=== PATIENT | female | born 1950 | race African-American/Black ===

== ENCOUNTER 2018-08-23 23:18 | Inpatient (IN) | payer MEDICARE ==
[~2018-08-23] VITALS: Ht 160 cm; Wt 93.4 kg
[2018-08-23] MEDS ORDERED: SOD CHLORIDE 0.9% 1,000 ML IV STA (23:23)
[2018-08-23] MEDS ORDERED: CEFTRIAXONE 1 GM/50 ML (PMX) 50 ML IVPB STA (23:23)
[2018-08-23] MEDS ORDERED: AZITHROMYCIN 500MG/NS (PMX) 250 ML IV STA (23:23)
[2018-08-23] MEDS ORDERED: METHYLPREDNISOLONE 125 MG INJ IV STA (23:23)
[2018-08-23] MEDS ORDERED: ALBUTEROL 0.083% (NEB) 2.5 MG/3 ML AMP HHN STA ×2 (23:24→23:35)
[2018-08-23 23:26] VITALS: Ht 160 cm; Wt 93.4 kg
[2018-08-23] MEDS ORDERED: MAGNESIUM SULFATE 2 GM/50 ML 50 ML IVPB ONE (23:30)
[2018-08-23] MEDS ORDERED: IPRATROPIUM (NEB) 0.5 MG/2.5 ML AMP HHN ONE (23:30)
[2018-08-24] VITALS (9 sets, daily range): BP systolic 118–141; BP diastolic 65–79; PULSE 90–110; RESP 20–22; BMI 36.5
--- NOTE | 2018-08-24 02:06 | ERD ---
ER Documentation Chief Complaint Chief Complaint SOB/asthema exacerbation despite continuous nebs x 2 days, 88% ra HPI This is a 68-year-old female with a history of asthma who presents for wheezing despite being at home on continuous nebs, arrived to the ED brought in by ambulance, hypoxic, history was limited secondary to acuity of her condition. The patient states that she is not a smoker, she denies chest pain, she has had no leg swelling, no hemoptysis. ROS All systems reviewed and are negative except as per history of present illness. Allergies Allergies: Coded Allergies: No Known Allergy (Unverified , 08/23/18) PMhx/Soc History of Surgery: No Anesthesia Reaction: No Hx Neurological Disorder: No Hx Respiratory Disorders: Yes (Asthma) Hx Cardiac Disorders: No Hx Psychiatric Problems: No Hx Miscellaneous Medical Probl: No Hx Alcohol Use: No Hx Substance Use: No Hx Tobacco Use: No Smoking Status: Never smoker Physical Exam Vitals Vital Signs Date Temp Pulse Resp B/P (MAP) Pulse Ox O2 O2 Flow FiO2 Time Delivery Rate 08/24/18 104 18 115/73 100 Mask 5.0 00:00 (87) 08/23/18 120 26 96 Nasal 3.0 23:41 Cannula 08/23/18 Non 15.0 23:30 Rebreather 08/23/18 Non 15 23:30 Rebreather 08/23/18 99.5 133 50 144/81 88 23:26 (102) Physical Exam Const: Moderate distress, tachypnea Head: Atraumatic Eyes: Normal Conjunctiva ENT: Normal External Ears, Nose and Mouth. Neck: Full range of motion. No meningismus. Resp: Bilateral expiratory wheezing, tachypnea noted Cardio: Regular rate and rhythm, no murmurs Abd: Soft, non tender, non distended. Normal bowel sounds Skin: No petechiae or rashes Back: No midline or flank tenderness Ext: No cyanosis, or edema Neur: Awake and alert Psych: Normal Mood and Affect Result Diagram: 08/23/18 3919 Results 24 hrs Laboratory Tests Test 08/23/18 23:23 08/23/18 23:36 Blood Gas Specimen Source Blood venous Arterial Blood Date Drawn 08/23/2018 11:30:20 PM Arterial Blood Gas Puncture Site VENOUS LINE Jaime Test N/A Venous Blood pH 7.290 Venous Blood pCO2 (Temp Corrected) 46.1 mmHG Venous Blood pO2 (Temp Corrected) 50.0 mmHG Venous Blood HCO3 21.7 mmol/L Venous Blood Oxygen Saturation 82.0 mmHG Venous Blood Base Excess -4.9 mmol/L Venous Blood Total Hemoglobin 13.4 g/dl Venous Blood Oxyhemoglobin 81.5 % Venous Blood Methemoglobin 0.2 % Carboxyhemoglobin 0.4 % Blood Gas Temperature 37.0 C Blood Gas Modality NASAL CANNULA FiO2 30.0 % Blood Gas Notified Whom UP Blood Gas Notified Time 08/23/2018 11:49:02 PM White Blood Count 11.5 10^3/ul Red Blood Count 4.16 10^6/ul Hemoglobin 12.6 g/dl Hematocrit 37.6 % Mean Corpuscular Volume 90.4 fl Mean Corpuscular Hemoglobin 30.3 pg Mean Corpuscular Hemoglobin Concent 33.5 g/dl Red Cell Distribution Width 13.8 % Platelet Count 243 10^3/UL Mean Platelet Volume 10.5 fl Immature Granulocytes % 0.500 % Neutrophils % 87.9 % Lymphocytes % 7.1 % Monocytes % 3.7 % Eosinophils % 0.4 % Basophils % 0.4 % Nucleated Red Blood Cells % 0.0 /100WBC Immature Granulocytes # 0.060 10^3/ul Neutrophils # 10.1 10^3/ul Lymphocytes # 0.8 10^3/ul Monocytes # 0.4 10^3/ul Eosinophils # 0.1 10^3/ul Basophils # 0.1 10^3/ul Nucleated Red Blood Cells # 0.0 10^3/ul Prothrombin Time 12.6 Sec Prothrombin Time Ratio 1.0 INR International Normalized Ratio 0.93 Activated Partial Thromboplast Time 24.1 Sec Troponin I 0.014 ng/ml B-Type Natriuretic Peptide 60 PG/ML Current Medications Medications Dose Sig/Cristal Start Time Status Last (Trade) Ordered Route PRN Stop Time Admin Dose Reason Admin Albuterol 2.1 mg ONCE STAT 08/23/18 DC (Proventil HHN 23:24 0.083% (Neb)) 08/23/18 23:33 Sodium 1,000 ml @ Q1H STAT 08/23/18 DC 08/24/18 Chloride 1,000 mls/hr IV 23:23 00:01 08/24/18 00:22 125 mg ONCE STAT 08/23/18 DC 08/23/18 Methylprednis IV 23:23 23:53 olone Sodium 08/23/18 23:26 Succinate (Solu-Medrol) Ceftriaxone 50 ml @ ONCE STAT 08/23/18 DC 08/23/18 Sodium 100 mls/hr IVPB 23:23 23:52 08/23/18 23:52 Azithromycin 250 ml @ ONCE STAT 08/23/18 DC 08/24/18 250 mls/hr IV 23:23 00:20 08/24/18 00:22 Magnesium 50 ml @ 25 ONCE ONCE 08/23/18 DC 08/23/18 Sulfate mls/hr IVPB 23:30 23:53 08/24/18 01:29 Ipratropium 1 mg ONCE ONCE 08/23/18 DC 08/23/18 [place] HHN 23:30 23:54 (Atrovent 08/23/18 23:33 0.02% (Neb)) Albuterol 10 mg ONCE STAT 08/23/18 DC 08/23/18 (Proventil HHN 23:35 23:55 0.083% (Neb)) 08/23/18 23:41 Procedures/MDM This is a 68-year-old female presents for evaluation of shortness of breath, in the setting of a prior history of asthma. Patient was evaluated immediately, and treated with nebulized treatments, as well as steroids, placed on nasal cannula, she did not have a significant respiratory acidosis, and her chest x- ray showed no evidence of pneumonia, on reassessment she had improved to family, but still required oxygen support and had some wheezing on exam. That she will be admitted to telemetry observation. Accepting Care Team: Current data and ongoing care discussed. Primary: [place] Consulting: None Outstanding Data: none EKG: Rate/Rhythm: Normal Sinus Rhythm QRS, ST, T-waves: No changes consistent w/ acute ischemia Impression: No evidence of ischemia or arrhythmia Critical Care Time: 35 minutes Treatments/Evaluations: Close monitoring and treatment of unstable vital signs, cardiorespiratory, and neurologic status, while maintaining tight balance of fluid, respiratory, and cardiac interventions. This time includes discussing the case with the patient and the patient's family. This time does not include all procedures stated elsewhere in this record. This time also includes reviewing old records, labs and radiological studies. This time includes examining and re- examining the patient. Additionally, this time also includes arranging care with admitting and consulting physicians. Departure Diagnosis: Primary Impression: Shortness of breath Additional Impression: Asthma Condition: Stable DARYL DEL ROSARIO MD Aug 24, 2018 02:06
[2018-08-24] MEDS ORDERED: ONDANSETRON 4 MG INJ IV PRN (03:00)
[2018-08-24] MEDS ORDERED: ACETAMINOPHEN 325 MG TAB PO PRN (03:00)
[2018-08-24] MEDS ORDERED: NACL 0.9% 3 ML SYG IV SCH (03:00)
[2018-08-24] MEDS ORDERED: ALBUTEROL/IPRATROPIUM (NEB) 3 ML AMP HHN PRN (03:00)
[2018-08-24] MEDS ORDERED: TIOT18CA INHALATION (05:37)
[2018-08-24] MEDS ORDERED: ALBU18HF INHALATION (05:37)
--- NOTE | 2018-08-24 07:14 | HP ---
Date/Time of Note Date/Time of Note DATE: 08/24/18 TIME: 07:09 Assessment/Plan VTE Prophylaxis Pharmacological prophylaxis: heparin Lines/Catheters IV Catheter Type (from Nrs): Saline Lock Assessment/Plan Assessment/Plan [age]-year-old female with history of asthma presented with shortness and wheezing secondary to asthma exacerbation PLAN -Supplemental oxygen, bronchodilators and steroid -Weight reduction is advised Result Diagram: 08/24/18 0537 08/24/18 0537 Results 24hrs Laboratory Tests Test 08/23/18 23:23 08/23/18 23:36 08/24/18 00:10 08/24/18 05:37 Blood Gas Blood venous Blood arterial Specimen Source Arterial Blood 08/23/2018 11:30 08/24/2018 4:00: Date Drawn :20 PM 06 AM Arterial Blood VENOUS LINE Right Radial Gas Puncture Site Jaime Test N/A ACCEPTAB Venous Blood pH 7.290 L Venous Blood 46.1 H pCO2 (Temp Corrected) Venous Blood pO2 50.0 H (Temp Corrected) Venous Blood 21.7 L HCO3 Venous Blood 82.0 H Oxygen Saturation Venous Blood -4.9 Base Excess Venous Blood 13.4 Total Hemoglobin Venous Blood 81.5 Oxyhemoglobin Venous Blood 0.2 Methemoglobin Carboxyhemoglobi 0.4 n Blood Gas 37.0 37.0 Temperature Blood Gas NASAL CANNULA ROOM AIR Modality FiO2 30.0 21.0 Blood Gas UP UP Notified Whom Blood Gas 08/23/2018 11:49 08/24/2018 4:10: Notified Time :02 PM 51 AM White Blood 11.5 H 13.4 H Count Red Blood Count 4.16 L 4.16 L Hemoglobin 12.6 12.5 Hematocrit 37.6 37.5 Mean Corpuscular 90.4 90.1 Volume Mean Corpuscular 30.3 30.0 Hemoglobin Mean Corpuscular 33.5 33.3 Hemoglobin Michelle nt Red Cell 13.8 13.7 Distribution Width Platelet Count 243 250 Mean Platelet 10.5 H 10.8 H Volume Immature 0.500 H 0.700 H Granulocytes % Neutrophils % 87.9 H 94.8 H Lymphocytes % 7.1 L 4.0 L Monocytes % 3.7 0.4 Eosinophils % 0.4 0.0 Basophils % 0.4 0.1 Nucleated Red 0.0 0.0 Blood Cells % Immature 0.060 H 0.090 H Granulocytes # Neutrophils # 10.1 H 12.7 H Lymphocytes # 0.8 0.5 L Monocytes # 0.4 0.1 L Eosinophils # 0.1 0.0 Basophils # 0.1 0.0 Nucleated Red 0.0 0.0 Blood Cells # Prothrombin Time 12.6 Prothrombin Time 1.0 Ratio INR 0.93 International Normalized Ratio Activated 24.1 Partial Thrombop last Time Troponin I 0.014 B-Type 60 Natriuretic Peptide Arterial Blood 7.347 L pH (Temp corrected) Arterial Blood 41.2 pCO2 (Temp correct) Arterial Blood 76.2 L pO2 (Temp corrected) Arterial Blood 22.1 HCO3 Arterial Blood -3.4 L Base Excess Arterial Blood 94.6 L Oxygen Saturatio n Arterial 0.2 Blood Carboxyhem oglobin Arterial Blood 0.2 Methemoglobin Blood Gas A-a O2 24.2 H Differential Oxyhemoglobin 94.2 Percent Sodium Level 143 Potassium Level 4.1 Chloride Level 111 H Carbon Dioxide 22 Level Anion Gap 10 Blood Urea 16 Nitrogen Creatinine 0.72 Est Glomerular > 60 Filtrat Rate mL/min Glucose Level 172 Calcium Level 8.9 Magnesium Level 2.4 Total Bilirubin 0.3 Direct Bilirubin 0.00 Indirect 0.3 Bilirubin Aspartate Amino 28 Transf (AST/SGOT ) Alanine 17 Aminotransferase (ALT/SGPT) Alkaline 110 Phosphatase Total Protein 6.9 Albumin 3.9 Globulin 3.00 Albumin/Globulin 1.30 Ratio HPI/ROS Admit Date/Time Admit Date/Time Aug 24, 2018 at 02:00 Hx of Present Illness This is a 68-year-old obese female with a history of asthma who presents the ER complaining of shortness of breath and wheezing. She said she was admitted for asthma exacerbation 2 weeks ago at an outside hospital. She has been using nebulizing treatments about 10 times a day without improvement in her symptom and as such she decided to come to the ER for evaluation. She states she was also admitted at the [facility] in May of this year for asthma exacerbation. No history of intubation. ABG in the ER shows mild hypercapnia and significant hypoxia. Initial O2 saturation was 88% on room air. Chest x-ray without acute cardiopulmonary findings. PMH/Family/Social Past Medical History Medical History: other (see hpi) Medications Current Medications IV Flush (NS 3 ml) 3 ml PER PROTOCOL IV ; Start 08/24/18 at 03:00 Ondansetron HCl (Zofran Inj) 4 mg Q6H PRN IV NAUSEA/VOMITING; Start 08/24/18 at 03:00 Methylprednisolone Sodium Succinate (Solu-Medrol) 80 mg DAILY IV ; Start 08/24/18 at 09:00 Acetaminophen (Tylenol Tab) 650 mg Q6H PRN PO .PAIN 1-3 OR TEMP; Start 08/24/18 at 03:00 Heparin Sodium (Porcine) (Heparin (5000 Units/1ml)) 5,000 unit Q12 SC ; Start 08/24/18 at 09:00 Albuterol/ Ipratropium (Duoneb) 3 ml Q2H RESP THERAPY PRN HHN SHORTNESS OF BREATH; Start 08/24/18 at 03:00 Coded Allergies: No Known Allergy (Unverified , 08/23/18) Past Surgical History Past Surgical Hx: other (see hpi) Family History Significant Family History: no pertinent family hx Social History Alcohol Use: none Smoking Status: Never smoker Drug Use: none Exam/Review of Systems Vital Signs Vitals Vital Signs Date Temp Pulse Resp B/P (MAP) Pulse Ox O2 O2 Flow FiO2 Time Delivery Rate 08/24/18 Nasal 2.0 06:14 Cannula 08/24/18 98.0 100 22 126/79 98 05:21 (95) Exam Constitutional: alert, oriented, well developed Head: normocephalic, atraumatic Eyes: EOMI, PERRL Respiratory: diminished breath sounds, wheezing Cardiovascular: other (tachy) Gastrointestinal: soft KADY FISCHER MD Aug 24, 2018 07:14
[2018-08-24] MEDS: HEPARIN 5,000 UNIT/1 ML VIAL SC SCH ×2 (08:35→22:49)
[2018-08-24] MEDS ORDERED: METHYLPREDNISOLONE 125 MG INJ IV SCH (09:00)
--- NOTE | 2018-08-24 12:51 | QN ---
Documentation Comment The patient sees a Dr. Henry as outpatient. Therefore, the patient is req uesting to be seen by Dr. Henry. Dr. Adhikari, who works with Dr. Henry sick was informed about this and she will take over the patient's care. Case discussed with Dr. Knox. NIKOS VAZQUEZ NP Aug 24, 2018 12:51
--- NOTE | 2018-08-24 15:22 | PN ---
Date/Time of Note Date/Time of Note DATE: 08/24/18 TIME: 15:13 Assessment/Plan VTE Prophylaxis Risk score (from [facility])>0 risk: 3 SCD applied (from [facility]): No SCD contraindicated: low risk/ambulating Pharmacological prophylaxis: NA/contraindicated Pharm contraindication: low risk/ambulating Lines/Catheters IV Catheter Type (from [facility]): Saline Lock Assessment/Plan Assessment/Plan 68 y/o with # Asthma exacerbation # Leukocytosis Plan - Nebs - iv solumedrol q8 - Robitusin prn cough - iv rocephin/azithromycin Result Diagram: 08/24/18 0537 08/24/18 0537 Results 24hrs Laboratory Tests Test 08/23/18 23:23 08/23/18 23:36 08/24/18 00:10 08/24/18 05:37 Blood Gas Blood venous Blood arterial Specimen Source Arterial Blood 08/23/2018 11:30 08/24/2018 4:00: Date Drawn :20 PM 06 AM Arterial Blood VENOUS LINE Right Radial Gas Puncture Site Jaime Test N/A ACCEPTAB Venous Blood pH 7.290 L Venous Blood 46.1 H pCO2 (Temp Corrected) Venous Blood pO2 50.0 H (Temp Corrected) Venous Blood 21.7 L HCO3 Venous Blood 82.0 H Oxygen Saturation Venous Blood -4.9 Base Excess Venous Blood 13.4 Total Hemoglobin Venous Blood 81.5 Oxyhemoglobin Venous Blood 0.2 Methemoglobin Carboxyhemoglobi 0.4 n Blood Gas 37.0 37.0 Temperature Blood Gas NASAL CANNULA ROOM AIR Modality FiO2 30.0 21.0 Blood Gas UP UP Notified Whom Blood Gas 08/23/2018 11:49 08/24/2018 4:10: Notified Time :02 PM 51 AM White Blood 11.5 H 13.4 H Count Red Blood Count 4.16 L 4.16 L Hemoglobin 12.6 12.5 Hematocrit 37.6 37.5 Mean Corpuscular 90.4 90.1 Volume Mean Corpuscular 30.3 30.0 Hemoglobin Mean Corpuscular 33.5 33.3 Hemoglobin Michelle nt Red Cell 13.8 13.7 Distribution Width Platelet Count 243 250 Mean Platelet 10.5 H 10.8 H Volume Immature 0.500 H 0.700 H Granulocytes % Neutrophils % 87.9 H 94.8 H Lymphocytes % 7.1 L 4.0 L Monocytes % 3.7 0.4 Eosinophils % 0.4 0.0 Basophils % 0.4 0.1 Nucleated Red 0.0 0.0 Blood Cells % Immature 0.060 H 0.090 H Granulocytes # Neutrophils # 10.1 H 12.7 H Lymphocytes # 0.8 0.5 L Monocytes # 0.4 0.1 L Eosinophils # 0.1 0.0 Basophils # 0.1 0.0 Nucleated Red 0.0 0.0 Blood Cells # Prothrombin Time 12.6 Prothrombin Time 1.0 Ratio INR 0.93 International Normalized Ratio Activated 24.1 Partial Thrombop last Time Troponin I 0.014 B-Type 60 Natriuretic Peptide Arterial Blood 7.347 L pH (Temp corrected) Arterial Blood 41.2 pCO2 (Temp correct) Arterial Blood 76.2 L pO2 (Temp corrected) Arterial Blood 22.1 HCO3 Arterial Blood -3.4 L Base Excess Arterial Blood 94.6 L Oxygen Saturatio n Arterial 0.2 Blood Carboxyhem oglobin Arterial Blood 0.2 Methemoglobin Blood Gas A-a O2 24.2 H Differential Oxyhemoglobin 94.2 Percent Sodium Level 143 Potassium Level 4.1 Chloride Level 111 H Carbon Dioxide 22 Level Anion Gap 10 Blood Urea 16 Nitrogen Creatinine 0.72 Est Glomerular > 60 Filtrat Rate mL/min Glucose Level 172 Calcium Level 8.9 Magnesium Level 2.4 Total Bilirubin 0.3 Direct Bilirubin 0.00 Indirect 0.3 Bilirubin Aspartate Amino 28 Transf (AST/SGOT ) Alanine 17 Aminotransferase (ALT/SGPT) Alkaline 110 Phosphatase Total Protein 6.9 Albumin 3.9 Globulin 3.00 Albumin/Globulin 1.30 Ratio Subjective 24 Hr Interval Summary Free Text/Dictation Feels better than yesterday Exam/Review of Systems Exam Vitals Vital Signs Date Temp Pulse Resp B/P (MAP) Pulse Ox O2 O2 Flow FiO2 Time Delivery Rate 08/24/18 2.0 12:45 08/24/18 107 16 96 Nasal 28 12:45 Cannula 08/24/18 98.3 136/67 10:57 (90) Exam Exam Constitutional: alert, oriented, well developed Head: normocephalic, atraumatic Eyes: EOMI, PERRL Respiratory: few exp rhonchi Cardiovascular: other (tachy) Gastrointestinal: soft edema+ Results Results 24hrs Laboratory Tests Test 08/23/18 23:23 08/23/18 23:36 08/24/18 00:10 08/24/18 05:37 Blood Gas Blood venous Blood arterial Specimen Source Arterial Blood 08/23/2018 11:30 08/24/2018 4:00: Date Drawn :20 PM 06 AM Arterial Blood VENOUS LINE Right Radial Gas Puncture Site Jaime Test N/A ACCEPTAB Venous Blood pH 7.290 L Venous Blood 46.1 H pCO2 (Temp Corrected) Venous Blood pO2 50.0 H (Temp Corrected) Venous Blood 21.7 L HCO3 Venous Blood 82.0 H Oxygen Saturation Venous Blood -4.9 Base Excess Venous Blood 13.4 Total Hemoglobin Venous Blood 81.5 Oxyhemoglobin Venous Blood 0.2 Methemoglobin Carboxyhemoglobi 0.4 n Blood Gas 37.0 37.0 Temperature Blood Gas NASAL CANNULA ROOM AIR Modality FiO2 30.0 21.0 Blood Gas UP UP Notified Whom Blood Gas 08/23/2018 11:49 08/24/2018 4:10: Notified Time :02 PM 51 AM White Blood 11.5 H 13.4 H Count Red Blood Count 4.16 L 4.16 L Hemoglobin 12.6 12.5 Hematocrit 37.6 37.5 Mean Corpuscular 90.4 90.1 Volume Mean Corpuscular 30.3 30.0 Hemoglobin Mean Corpuscular 33.5 33.3 Hemoglobin Michelle nt Red Cell 13.8 13.7 Distribution Width Platelet Count 243 250 Mean Platelet 10.5 H 10.8 H Volume Immature 0.500 H 0.700 H Granulocytes % Neutrophils % 87.9 H 94.8 H Lymphocytes % 7.1 L 4.0 L Monocytes % 3.7 0.4 Eosinophils % 0.4 0.0 Basophils % 0.4 0.1 Nucleated Red 0.0 0.0 Blood Cells % Immature 0.060 H 0.090 H Granulocytes # Neutrophils # 10.1 H 12.7 H Lymphocytes # 0.8 0.5 L Monocytes # 0.4 0.1 L Eosinophils # 0.1 0.0 Basophils # 0.1 0.0 Nucleated Red 0.0 0.0 Blood Cells # Prothrombin Time 12.6 Prothrombin Time 1.0 Ratio INR 0.93 International Normalized Ratio Activated 24.1 Partial Thrombop last Time Troponin I 0.014 B-Type 60 Natriuretic Peptide Arterial Blood 7.347 L pH (Temp corrected) Arterial Blood 41.2 pCO2 (Temp correct) Arterial Blood 76.2 L pO2 (Temp corrected) Arterial Blood 22.1 HCO3 Arterial Blood -3.4 L Base Excess Arterial Blood 94.6 L Oxygen Saturatio n Arterial 0.2 Blood Carboxyhem oglobin Arterial Blood 0.2 Methemoglobin Blood Gas A-a O2 24.2 H Differential Oxyhemoglobin 94.2 Percent Sodium Level 143 Potassium Level 4.1 Chloride Level 111 H Carbon Dioxide 22 Level Anion Gap 10 Blood Urea 16 Nitrogen Creatinine 0.72 Est Glomerular > 60 Filtrat Rate mL/min Glucose Level 172 Calcium Level 8.9 Magnesium Level 2.4 Total Bilirubin 0.3 Direct Bilirubin 0.00 Indirect 0.3 Bilirubin Aspartate Amino 28 Transf (AST/SGOT ) Alanine 17 Aminotransferase (ALT/SGPT) Alkaline 110 Phosphatase Total Protein 6.9 Albumin 3.9 Globulin 3.00 Albumin/Globulin 1.30 Ratio Medications Medication Current Medications IV Flush (NS 3 ml) 3 ml PER PROTOCOL IV ; Start 08/24/18 at 03:00 Ondansetron HCl (Zofran Inj) 4 mg Q6H PRN IV NAUSEA/VOMITING; Start 08/24/18 at 03:00 Acetaminophen (Tylenol Tab) 650 mg Q6H PRN PO .PAIN 1-3 OR TEMP; Start 08/24/18 at 03:00 Heparin Sodium (Porcine) (Heparin (5000 Units/1ml)) 5,000 unit Q12 SC Last administered on 08/24/18at 08:35; Admin Dose 5,000 UNIT; Start 08/24/18 at 09:00 Albuterol/ Ipratropium (Duoneb) 3 ml Q2H RESP THERAPY PRN HHN SHORTNESS OF B REATH Last administered on 08/24/18at 12:43; Admin Dose 3 ML; Start 08/24/18 at 03:00 Albuterol/ Ipratropium (Duoneb) 3 ml Q4H RESP THERAPY HHN ; Start 08/24/18 at 17:00; Status UNV Methylprednisolone Sodium Succinate (Solu-Medrol) 40 mg Q8 IV ; Start 08/24/18 at 22:00; Status UNV Guaifenesin/ Dextromethorphan (Robitussin Dm Liquid Cup) 10 ml Q4H PRN PO CHEST PAIN; Start 08/24/18 at 15:30; Status UNV Quetiapine Fumarate (Seroquel) 25 mg QHS PO ; Start 08/24/18 at 21:00; Status UNV Ceftriaxone Sodium 50 ml @ 100 mls/hr Q24H IVPB ; Start 08/24/18 at 15:30; Status UNV Azithromycin 500 mg/Sodium Chloride 250 ml @ 250 mls/hr NOW IVPB ; Start 08/24/18 at 15:30; Status UNV MARILOU GUZMÁN MD Aug 24, 2018 15:22
[2018-08-24] MEDS ORDERED: AZITHROMYCIN 500 MG in SOD CHLORIDE 0.9% 250 ML IVPB SCH (15:30)
[2018-08-24] MEDS ORDERED: PANTOPRAZOLE 40 MG INJ IV ONE (15:30)
[2018-08-24] MEDS: ALBUTEROL/IPRATROPIUM (NEB) 3 ML AMP HHN SCH ×2 (17:11→21:16)
[2018-08-24] MEDS ORDERED: QUETIAPINE 25 MG TAB PO SCH (21:00)
[2018-08-24] MEDS: METHYLPREDNISOLONE 40 MG INJ IV SCH (22:13)
[2018-08-24] MEDS: CEFTRIAXONE 1 GM/50 ML (PMX) 50 ML IVPB SCH (22:13)
[2018-08-25] VITALS (11 sets, daily range): BP systolic 119–144; BP diastolic 58–86; PULSE 62–114; RESP 18–20
[2018-08-25] MEDS: ALBUTEROL/IPRATROPIUM (NEB) 3 ML AMP HHN SCH ×6 (01:21→20:31)
[2018-08-25] MEDS: METHYLPREDNISOLONE 40 MG INJ IV SCH ×3 (06:31→23:14)
[2018-08-25] MEDS: CEFTRIAXONE 1 GM/50 ML (PMX) 50 ML IVPB SCH (06:31)
[2018-08-25] MEDS: HEPARIN 5,000 UNIT/1 ML VIAL SC SCH ×2 (08:08→23:16)
--- NOTE | 2018-08-25 15:12 | PN ---
Date/Time of Note Date/Time of Note DATE: 08/25/18 TIME: 15:11 Assessment/Plan VTE Prophylaxis Risk score (from [facility])>0 risk: 3 SCD applied (from [facility] [place]): No SCD contraindicated: low risk/ambulating Pharmacological prophylaxis: NA/contraindicated Pharm contraindication: low risk/ambulating Lines/Catheters IV Catheter Type (from [facility]): Saline Lock Assessment/Plan Assessment/Plan 68 y/o with # Asthma exacerbation # Leukocytosis likely due to steroids Plan - Nebs - iv solumedrol q8 - Robitusin prn cough - iv rocephin/azithromycin transfer med surg - gi/.dv tprophylaxsis Result Diagram: 08/25/18 0558 08/25/18 0558 Results 24hrs Laboratory Tests Test 08/25/18 05:58 White Blood Count 23.2 #H Red Blood Count 3.94 L Hemoglobin 11.8 L Hematocrit 34.9 L Mean Corpuscular Volume 88.6 Mean Corpuscular Hemoglobin 29.9 Mean Corpuscular Hemoglobin Concent 33.8 Red Cell Distribution Width 14.3 Platelet Count 243 Mean Platelet Volume 11.0 H Immature Granulocytes % 0.800 H Neutrophils % 90.8 H Lymphocytes % 5.3 L Monocytes % 3.0 Eosinophils % 0.0 Basophils % 0.1 Nucleated Red Blood Cells % 0.0 Immature Granulocytes # 0.180 H Neutrophils # 21.1 H Lymphocytes # 1.2 Monocytes # 0.7 Eosinophils # 0.0 Basophils # 0.0 Nucleated Red Blood Cells # 0.0 Sodium Level 144 Potassium Level 4.7 Chloride Level 113 H Carbon Dioxide Level 25 Anion Gap 6 Blood Urea Nitrogen 16 Creatinine 0.71 Est Glomerular Filtrat Rate mL/min > 60 Glucose Level 142 Calcium Level 9.5 Phosphorus Level 3.2 Magnesium Level 2.4 Subjective 24 Hr Interval Summary Free Text/Dictation feels slight better today still coughing Exam/Review of Systems Exam Vitals Vital Signs Date Temp Pulse Resp B/P (MAP) Pulse Ox O2 O2 Flow FiO2 Time Delivery Rate 08/25/18 88 18 99 Nasal 2.0 13:18 Cannula 08/25/18 97.7 136/86 11:23 (103) 08/25/18 28 05:05 Intake and Output 08/24/18 08/24/18 08/25/18 1414:59 22:59 06:59 IntakeIntake Total 1450 ml 1600 ml BalanceBalance 1450 ml 1600 ml Exam Constitutional: alert, oriented, well developed Head: normocephalic, atraumatic Eyes: EOMI, PERRL Respiratory: few exp rhonchi scatttered Cardiovascular: other (tachy) Gastrointestinal: soft edema+ Results Results 24hrs Laboratory Tests Test 08/25/18 05:58 White Blood Count 23.2 #H Red Blood Count 3.94 L Hemoglobin 11.8 L Hematocrit 34.9 L Mean Corpuscular Volume 88.6 Mean Corpuscular Hemoglobin 29.9 Mean Corpuscular Hemoglobin Concent 33.8 Red Cell Distribution Width 14.3 Platelet Count 243 Mean Platelet Volume 11.0 H Immature Granulocytes % 0.800 H Neutrophils % 90.8 H Lymphocytes % 5.3 L Monocytes % 3.0 Eosinophils % 0.0 Basophils % 0.1 Nucleated Red Blood Cells % 0.0 Immature Granulocytes # 0.180 H Neutrophils # 21.1 H Lymphocytes # 1.2 Monocytes # 0.7 Eosinophils # 0.0 Basophils # 0.0 Nucleated Red Blood Cells # 0.0 Sodium Level 144 Potassium Level 4.7 Chloride Level 113 H Carbon Dioxide Level 25 Anion Gap 6 Blood Urea Nitrogen 16 Creatinine 0.71 Est Glomerular Filtrat Rate mL/min > 60 Glucose Level 142 Calcium Level 9.5 Phosphorus Level 3.2 Magnesium Level 2.4 Medications Medication Current Medications IV Flush (NS 3 ml) 3 ml PER PROTOCOL IV ; Start 08/24/18 at 03:00 Ondansetron HCl (Zofran Inj) 4 mg Q6H PRN IV NAUSEA/VOMITING; Start 08/24/18 at 03:00 Acetaminophen (Tylenol Tab) 650 mg Q6H PRN PO .PAIN 1-3 OR TEMP; Start 08/24/18 at 03:00 Heparin Sodium (Porcine) (Heparin (5000 Units/1ml)) 5,000 unit Q12 SC Last administered on 08/25/18at 08:08; Admin Dose 5,000 UNIT; Start 08/24/18 at 09:00 Albuterol/ Ipratropium (Duoneb) 3 ml Q2H RESP THERAPY PRN HHN SHORTNESS OF BREATH Last administered on 08/24/18at 12:43; Admin Dose 3 ML; Start 08/24/18 at 03:00 Albuterol/ Ipratropium (Duoneb) 3 ml Q4H RESP THERAPY HHN Last administered on 08/25/18at 13:18; Admin Dose 3 ML; Start 08/24/18 at 17:00 Methylprednisolone Sodium Succinate (Solu-Medrol) 40 mg Q8 IV Last administered on 08/25/18at 13:48; Admin Dose 40 MG; Start 08/24/18 at 22:00 Guaifenesin/ Dextromethorphan (Robitussin Dm Liquid Cup) 10 ml Q4H PRN PO COUGH; Start 08/24/18 at 15:30 Quetiapine Fumarate (Seroquel) 25 mg QHS PO Last administered on 08/24/18at 22:59; Admin Dose 25 MG; Start 08/24/18 at 21:00 Ceftriaxone Sodium 50 ml @ 100 mls/hr Q24H IVPB Last administered on 08/25/18at 06:31; Admin Dose 100 MLS/HR; Start 08/24/18 at 23:00 Azithromycin 500 mg/Sodium Chloride 250 ml @ 250 mls/hr DAILY IVPB ; Start 08/26/18 at 09:00; Status UNMARILOU ORTIZ MD Aug 25, 2018 15:12
[2018-08-25] MEDS ORDERED: QUETIAPINE 25 MG TAB PO SCH (23:00)
[2018-08-25] MEDS: GUAIFENESIN/DM 5ML CUP PO PRN (23:13)
[2018-08-26 01:08] VITALS: BP 138/76; PULSE 98; RESP 18
[2018-08-26] MEDS: ALBUTEROL/IPRATROPIUM (NEB) 3 ML AMP HHN SCH ×6 (01:28→21:59)
[2018-08-26] MEDS: METHYLPREDNISOLONE 40 MG INJ IV SCH ×3 (06:00→21:18)
[2018-08-26] MEDS: GUAIFENESIN/DM 5ML CUP PO PRN (06:25)
[2018-08-26 07:30] VITALS: BP 133/73; PULSE 87; RESP 17
[2018-08-26] MEDS: AZITHROMYCIN 500 MG in SOD CHLORIDE 0.9% 250 ML IVPB SCH (09:59)
[2018-08-26] MEDS: HEPARIN 5,000 UNIT/1 ML VIAL SC SCH ×2 (10:00→21:21)
[2018-08-26 14:09] VITALS: BP 151/82; PULSE 75; RESP 18
--- NOTE | 2018-08-26 14:12 | PN ---
Date/Time of Note Date/Time of Note DATE: 08/26/18 TIME: 14:12 Assessment/Plan VTE Prophylaxis Risk score (from [facility] [place])>0 risk: 4 SCD applied (from [facility] [place]): No SCD contraindicated: low risk/ambulating Pharmacological prophylaxis: NA/contraindicated Pharm contraindication: low risk/ambulating Lines/Catheters IV Catheter Type (from [facility]): Peripheral IV Assessment/Plan Assessment/Plan 68 y/o with # Asthma exacerbation # Leukocytosis likely due to steroids Plan - Nebs - dec steroids - Robitusin prn cough - iv rocephin/azithromycin - gi/.dv tprophylaxsis Result Diagram: 08/26/18 0655 08/26/18 0655 Results 24hrs Laboratory Tests Test 08/26/18 06:55 White Blood Count 23.0 H Red Blood Count 3.96 L Hemoglobin 11.9 L Hematocrit 35.4 L Mean Corpuscular Volume 89.4 Mean Corpuscular Hemoglobin 30.1 Mean Corpuscular Hemoglobin Concent 33.6 Red Cell Distribution Width 14.3 Platelet Count 243 Mean Platelet Volume 11.2 H Immature Granulocytes % 1.300 H Neutrophils % 88.8 H Lymphocytes % 5.0 L Monocytes % 4.7 Eosinophils % 0.0 Basophils % 0.2 Nucleated Red Blood Cells % 0.0 Immature Granulocytes # 0.310 H Neutrophils # 20.4 H Lymphocytes # 1.2 Monocytes # 1.1 H Eosinophils # 0.0 Basophils # 0.0 Nucleated Red Blood Cells # 0.0 Sodium Level 143 Potassium Level 4.2 Chloride Level 110 Carbon Dioxide Level 25 Anion Gap 8 Blood Urea Nitrogen 22 H Creatinine 0.82 Est Glomerular Filtrat Rate mL/min > 60 Glucose Level 139 Calcium Level 9.4 Phosphorus Level 3.4 Magnesium Level 2.0 Subjective 24 Hr Interval Summary Free Text/Dictation feeling better everyday Exam/Review of Systems Exam Vitals Vital Signs Date Temp Pulse Resp B/P (MAP) Pulse Ox O2 O2 Flow FiO2 Time Delivery Rate 08/26/18 98.3 75 18 151/82 95 14:09 (105) 08/26/18 2.0 13:58 08/26/18 Nasal 10:11 Cannula 08/26/18 21 01:29 Intake and Output 08/25/18 08/25/18 08/26/18 1414:59 22:59 06:59 IntakeIntake Total 300 ml OutputOutput Total 1 ml BalanceBalance 299 ml Exam Constitutional: alert, oriented, well developed Head: normocephalic, atraumatic Eyes: EOMI, PERRL Respiratory: few exp rhonchi scatttered improving Cardiovascular: other (tachy) Gastrointestinal: soft edema+ Results Results 24hrs Laboratory Tests Test 08/26/18 06:55 White Blood Count 23.0 H Red Blood Count 3.96 L Hemoglobin 11.9 L Hematocrit 35.4 L Mean Corpuscular Volume 89.4 Mean Corpuscular Hemoglobin 30.1 Mean Corpuscular Hemoglobin Concent 33.6 Red Cell Distribution Width 14.3 Platelet Count 243 Mean Platelet Volume 11.2 H Immature Granulocytes % 1.300 H Neutrophils % 88.8 H Lymphocytes % 5.0 L Monocytes % 4.7 Eosinophils % 0.0 Basophils % 0.2 Nucleated Red Blood Cells % 0.0 Immature Granulocytes # 0.310 H Neutrophils # 20.4 H Lymphocytes # 1.2 Monocytes # 1.1 H Eosinophils # 0.0 Basophils # 0.0 Nucleated Red Blood Cells # 0.0 Sodium Level 143 Potassium Level 4.2 Chloride Level 110 Carbon Dioxide Level 25 Anion Gap 8 Blood Urea Nitrogen 22 H Creatinine 0.82 Est Glomerular Filtrat Rate mL/min > 60 Glucose Level 139 Calcium Level 9.4 Phosphorus Level 3.4 Magnesium Level 2.0 Medications Medication Current Medications IV Flush (NS 3 ml) 3 ml PER PROTOCOL IV ; Start 08/24/18 at 03:00 Ondansetron HCl (Zofran Inj) 4 mg Q6H PRN IV NAUSEA/VOMITING; Start 08/24/18 at 03:00 Acetaminophen (Tylenol Tab) 650 mg Q6H PRN PO .PAIN 1-3 OR TEMP; Start 08/24/18 at 03:00 Heparin Sodium (Porcine) (Heparin (5000 Units/1ml)) 5,000 unit Q12 SC Last administered on 08/26/18at 10:00; Admin Dose 5,000 UNIT; Start 08/24/18 at 09:00 Albuterol/ Ipratropium (Duoneb) 3 ml Q2H RESP THERAPY PRN HHN SHORTNESS OF YESY TH Last administered on 08/24/18at 12:43; Admin Dose 3 ML; Start 08/24/18 at 03:00 Albuterol/ Ipratropium (Duoneb) 3 ml Q4H RESP THERAPY HHN Last administered on 08/26/18at 10:10; Admin Dose 3 ML; Start 08/24/18 at 17:00 Methylprednisolone Sodium Succinate (Solu-Medrol) 40 mg Q8 IV Last administered on 08/25/18at 23:14; Admin Dose 40 MG; Start 08/24/18 at 22:00 Guaifenesin/ Dextromethorphan (Robitussin Dm Liquid Cup) 10 ml Q4H PRN PO COUGH Last administered on 08/26/18at 06:25; Admin Dose 10 ML; Start 08/24/18 at 15:30 Ceftriaxone Sodium 50 ml @ 100 mls/hr Q24H IVPB Last administered on 08/25/18at 06:31; Admin Dose 100 MLS/HR; Start 08/24/18 at 23:00 Azithromycin 500 mg/Sodium Chloride 250 ml @ 250 mls/hr DAILY IVPB Last administered on 08/26/18at 09:59; Admin Dose 250 MLS/HR; Start 08/26/18 at 09:00 Quetiapine Fumarate (Seroquel) 30 mg QHS PO ; Start 08/26/18 at 21:00 MARILOU GUZMÁN MD August 26, 2018 14:12
[2018-08-26 19:54] VITALS: BP 122/63; PULSE 89; RESP 17
[2018-08-26] MEDS: QUETIAPINE 25 MG TAB PO SCH (21:18)
[2018-08-26] MEDS: CEFTRIAXONE 1 GM/50 ML (PMX) 50 ML IVPB SCH (23:20)
[2018-08-27] MEDS: ALBUTEROL/IPRATROPIUM (NEB) 3 ML AMP HHN SCH ×6 (01:30→21:32)
[2018-08-27 02:00] VITALS: BP 141/67; PULSE 91; RESP 19
[2018-08-27 08:09] VITALS: BP 139/70; PULSE 95; RESP 18
[2018-08-27] MEDS: METHYLPREDNISOLONE 40 MG INJ IV SCH ×2 (08:39→21:09)
[2018-08-27] MEDS: HEPARIN 5,000 UNIT/1 ML VIAL SC SCH ×2 (08:40→21:23)
[2018-08-27] MEDS: AZITHROMYCIN 500 MG in SOD CHLORIDE 0.9% 250 ML IVPB SCH (08:41)
[2018-08-27 14:55] VITALS: BP 130/71; PULSE 98; RESP 20
--- NOTE | 2018-08-27 15:46 | PN ---
Date/Time of Note Date/Time of Note DATE: 08/27/18 TIME: 15:43 Assessment/Plan VTE Prophylaxis Risk score (from [facility] [place] risk: 3 SCD applied (from [facility] [place]): No SCD contraindicated: low risk/ambulating Pharmacological prophylaxis: NA/contraindicated Pharm contraindication: low risk/ambulating Lines/Catheters IV [facility] Type (from [facility] Saline Lock Assessment/Plan Hospital Course Assessment/Plan 68 y/o with # Asthma exacerbation slowly recovering # Leukocytosis likely due to steroids Plan - Nebs, add INH - extra dose of iv solumedrol - resp culture neg - Robitusin prn cough - iv rocephin/azithromycin - gi/.dv tprophylaxsis Result Diagram: 08/27/1872408/27/18724 Results 24hrs Laboratory Tests Test 08/27/18 07:25 White Blood Count 22.3 H Red Blood Count 4.32 Hemoglobin 12.8 Hematocrit 38.7 Mean Corpuscular Volume 89.6 Mean Corpuscular Hemoglobin 29.6 Mean Corpuscular Hemoglobin Concent 33.1 Red Cell Distribution Width 14.6 H Platelet Count 262 Mean Platelet Volume 11.2 H Immature Granulocytes % 2.100 H Neutrophils % 82.1 H Lymphocytes % 9.2 L Monocytes % 6.4 Eosinophils % 0.0 Basophils % 0.2 Nucleated Red Blood Cells % 0.0 Immature Granulocytes # 0.470 H Neutrophils # 18.3 H Lymphocytes # 2.1 Monocytes # 1.4 H Eosinophils # 0.0 Basophils # 0.1 Nucleated Red Blood Cells # 0.0 Sodium Level 144 Potassium Level 4.1 Chloride Level 106 Carbon Dioxide Level 31 Anion Gap 7 Blood Urea Nitrogen 21 H Creatinine 0.74 Est Glomerular Filtrat Rate mL/min > 60 Glucose Level 116 Calcium Level 9.3 Subjective 24 Hr Interval Summary Free Text/Dictation still coughing/wheezing Exam/Review of Systems Exam Vitals Vital Signs Date Temp Pulse Resp B/P (MAP) Pulse Ox O2 O2 Flow FiO2 Time Delivery Rate 08/27/18 98.0 98 20 130/71 97 14:55 (90) 08/27/18 2.0 14:51 08/27/18 Nasal 14:50 Cannula 08/26/18 21 01:29 Intake and Output 08/26/18 08/26/18 08/27/18 1515:00 23:00 07:00 IntakeIntake Total 1250 ml 720 ml 410 ml BalanceBalance 1250 ml 720 ml 410 ml Exam Constitutional: alert, oriented, well developed Head: normocephalic, atraumatic Eyes: EOMI, PERRL Respiratory: few exp rhonchi scatttered improving Cardiovascular: other (tachy) Gastrointestinal: soft edema+ Results Results 24hrs Laboratory Tests Test 08/27/18 07:25 White Blood Count 22.3 H Red Blood Count 4.32 Hemoglobin 12.8 Hematocrit 38.7 Mean Corpuscular Volume 89.6 Mean Corpuscular Hemoglobin 29.6 Mean Corpuscular Hemoglobin Concent 33.1 Red Cell Distribution Width 14.6 H Platelet Count 262 Mean Platelet Volume 11.2 H Immature Granulocytes % 2.100 H Neutrophils % 82.1 H Lymphocytes % 9.2 L Monocytes % 6.4 Eosinophils % 0.0 Basophils % 0.2 Nucleated Red Blood Cells % 0.0 Immature Granulocytes # 0.470 H Neutrophils # 18.3 H Lymphocytes # 2.1 Monocytes # 1.4 H Eosinophils # 0.0 Basophils # 0.1 Nucleated Red Blood Cells # 0.0 Sodium Level 144 Potassium Level 4.1 Chloride Level 106 Carbon Dioxide Level 31 Anion Gap 7 Blood Urea Nitrogen 21 H Creatinine 0.74 Est Glomerular Filtrat Rate mL/min > 60 Glucose Level 116 Calcium Level 9.3 Medications Medication Current Medications IV Flush (NS 3 ml) 3 ml PER PROTOCOL IV ; Start 08/24/18 at 03:00 Ondansetron HCl (Zofran Inj) 4 mg Q6H PRN IV NAUSEA/VOMITING; Start 08/24/18 at 03:00 Acetaminophen (Tylenol Tab) 650 mg Q6H PRN PO .PAIN 1-3 OR TEMP; Start 08/24/18 at 03:00 Heparin Sodium (Porcine) (Heparin (5000 Units/1ml)) 5,000 unit Q12 SC Last administered on 08/27/18at 08:40; Admin Dose 5,000 UNIT; Start 08/24/18 at 09:00 Albuterol/ Ipratropium (Duoneb) 3 ml Q2H RESP THERAPY PRN HHN SHORTNESS OF BREATH Last administered on 08/24/18at 12:43; Admin Dose 3 ML; Start 08/24/18 at 03:00 Albuterol/ Ipratropium (Duoneb) 3 ml Q4H RESP THERAPY HHN Last administered on 08/27/18 14:50; Admin Dose 3 ML; Start 08/24/18 at 17:00 Guaifenesin/ Dextromethorphan (Robitussin Dm Liquid Cup) 10 ml Q4H PRN PO COUGH Last administered on 08/26/18 06:25; Admin Dose 10 ML; Start 08/24/18 at 15:30 Ceftriaxone Sodium 50 ml @ 100 mls/hr Q24H IVPB Last administered on 08/26/18at 23:20; Admin Dose 100 MLS/HR; Start 08/24/18 at 23:00 Azithromycin 500 mg/Sodium Chloride 250 ml @ 250 mls/hr DAILY IVPB Last administered on 08/27/18 08:41; Admin Dose 250 MLS/HR; Start 08/26/18 at 09:00 Quetiapine Fumarate (Seroquel) 30 mg QHS PO Last administered on 08/26/18 21:18; Admin Dose 30 MG; Start 08/26/18 at 21:00 Methylprednisolone Sodium Succinate (Solu-Medrol) 40 mg Q12 IV Last administered on 08/27/18 08:39; Admin Dose 40 MG; Start 08/27/18 at 09:00 MARILOU GUZMÁN MD August 27, 2018 15:45
[2018-08-27] MEDS ORDERED: METHYLPREDNISOLONE 125 MG INJ IV ONE (16:00)
[2018-08-27] MEDS: TIOTROPIUM 18 MCG CAPSULE INHA DEV INH SCH (18:13)
[2018-08-27 20:00] VITALS: BP 135/65; PULSE 95; RESP 18
[2018-08-27] MEDS ORDERED: PROVENTIL HFA 6.7GM INHALER INH SCH (21:00)
[2018-08-27] MEDS: QUETIAPINE 25 MG TAB PO SCH (21:10)
[2018-08-27] MEDS: CEFTRIAXONE 1 GM/50 ML (PMX) 50 ML IVPB SCH (23:22)
[2018-08-28] MEDS: ALBUTEROL/IPRATROPIUM (NEB) 3 ML AMP HHN SCH ×4 (01:42→13:26)
[2018-08-28 02:00] VITALS: BP 132/67; PULSE 88; RESP 18
[2018-08-28 07:25] VITALS: BP 138/60; PULSE 95; RESP 18
[2018-08-28] MEDS: METHYLPREDNISOLONE 40 MG INJ IV SCH (09:22)
[2018-08-28] MEDS: TIOTROPIUM 18 MCG CAPSULE INHA DEV INH SCH (09:22)
[2018-08-28] MEDS: HEPARIN 5,000 UNIT/1 ML VIAL SC SCH (09:28)
[2018-08-28] MEDS: AZITHROMYCIN 500 MG in SOD CHLORIDE 0.9% 250 ML IVPB SCH (09:35)
[2018-08-28 13:57] VITALS: BP 136/71; PULSE 98; RESP 18
--- NOTE | 2018-08-28 15:04 | DS ---
RICHARD BUSCH 08/28/18 1504: Date/Time of Note Date/Time of Note DATE: 08/28/18 TIME: 15:03 Discharge Summary Admission/Discharge Info Admit Date/Time Aug 24, 2018 at 02:00 Discharge Date/Time Discharge Diagnosis Asthma exacerbation Patient Condition: Stable Consults none Hospital Course 68-year-old female with history of asthma presented with shortness of breath and wheezing secondary to asthma exacerbation. Dx: # Asthma exacerbation, slowly recovering # Leukocytosis likely due to steroids During hospitalization pt was given supplemental oxygen as long as breathing treatment over the clock, she was given an extra dose of iv solumedrol due to persistent wheezing. Her resp. culture was neg. Pt is clinically improved after using Robitusin prn cough. we had started her on iv rocephin/azithromycin. Pt demonstrated improvement before discharge. She ambulated and had no meed in supplemental oxygen, Home Meds Active Scripts Benzonatate* (Benzonatate*) 200 Mg Capsule, 200 MG PO TID PRN for COUGH, #30 CAP Prov:KADY NORRIS 08/30/18 Albuterol Sulfate* (Proair HFA*) 8.5 Gm Hfa.aer.ad, 2 PUFF INH Q4H PRN for WHEEZING AND SOB, #1 INHALER Prov:KADY NORRIS 08/30/18 Albuterol Sulfate (Proair Respiclick) 90 Mcg Aer.pow.ba, 1 PUFF INHALATION Q4 PRN for SHORTNESS OF BREATH, #1 BOTTLE Prov:RICHARD BUSCH 08/28/18 Methylprednisolone* (Medrol* DOSE PACK) 4 Mg/Dose-Pack Tab.ds.pk, 4 MG PO . DIRECTED for 5 Days, PACKET Prov:RICHARD BUSCH 08/28/18 Xknicekkiap-L-Qzyjovbgui Hb* (Guaifenesin* DM Syrup) 120 Ml Syrup, 10 ML PO Q4H PRN for COUGH for 14 Days Prov:RICHARD BUSCH 08/28/18 Azithromycin* (Azithromycin*) 500 Mg Tablet, 500 MG PO DAILY for 3 Days, TAB Prov:RICHARD BUSCH 08/28/18 Reported Medications Tiotropium [place]* (Spiriva*) 18 Mcg Cap.w.dev, 1 CAP INHALATION DAILY, #30 CAP 08/24/18 Albuterol Sulfate* (Ventolin HFA*) 18 Gm Hfa.aer.ad, 2 PUFF INHALATION BID, #1 INHALER 08/24/18 Follow-up Plan [facility] Primary Care Provider Care Physician No Primary Time spent on discharge: < 30 minutes MARILOU GUZMÁN MD 08/28/18 1811: Discharge Summary Admission/Discharge Info Hospital Course SEEN AND EXAMINED Home Meds Active Scripts Benzonatate* (Benzonatate*) 200 Mg Capsule, 200 MG PO TID PRN for COUGH, #30 CAP Prov:KADY NORRIS 08/30/18 Albuterol Sulfate* (Proair HFA*) 8.5 Gm Hfa.aer.ad, 2 PUFF INH Q4H PRN for WHEEZING AND SOB, #1 INHALER Prov:KADY NORRIS 08/30/18 Albuterol Sulfate (Proair Respiclick) 90 Mcg Aer.pow.ba, 1 PUFF INHALATION Q4 PRN for SHORTNESS OF BREATH, #1 BOTTLE Prov:RICHARD BUSCH 08/28/18 Methylprednisolone* (Medrol* DOSE PACK) 4 Mg/Dose-Pack Tab.ds.pk, 4 MG PO . DIRECTED for 5 Days, PACKET Prov:RICHARD BUSCH 08/28/18 Zcdxfzrxdhi-X-Koppfbgoma Hb* (Guaifenesin* DM Syrup) 120 Ml Syrup, 10 ML PO Q4H PRN for COUGH for 14 Days Prov:RICHARD BUSCH 08/28/18 Azithromycin* (Azithromycin*) 500 Mg Tablet, 500 MG PO DAILY for 3 Days, TAB Prov:RICHARD BUSCH 08/28/18 Reported Medications Tiotropium [place]* (Spiriva*) 18 Mcg Cap.w.dev, 1 CAP INHALATION DAILY, #30 CAP 08/24/18 Albuterol Sulfate* (Ventolin HFA*) 18 Gm Hfa.aer.ad, 2 PUFF INHALATION BID, #1 INHALER 08/24/18 RICHARD BUSCH August 28, 2018 15:04 MARILOU GUZMÁN MD August 28, 2018 18:11
--- NOTE | 2018-08-28 15:04 | PDOCDIS ---
Discharge Instructions DIAGNOSIS Discharge Diagnosis Asthma exacerbation CONDITION [id number] Patient Condition: [id number] Stable ACTIVITY: [id number] Activity Restrictions: [id number] Slowly Increase Activity Rest between Activity Avoid heavy lifting Avoid Heavy Housework FOLLOW UP/APPOINTMENTS Follow-up Plan PCP dr Henry 2 weeks RICHARD BUSCH August 28, 2018 15:04
[2018-08-28] MEDS ORDERED: AZIT500T5 PO (15:09)
[2018-08-28] MEDS ORDERED: GUAI120S25 PO (15:09)
[2018-08-28] MEDS ORDERED: MED4DP PO (15:09)
[2018-08-28] MEDS ORDERED: ALBU90AE INHALATION (16:20)
== END 2018-08-28 17:05 | disposition home or self-care (01) | DRG 203 ==
LOC: E/R 23:18 → 6WM 08-24 02:00 → 2NE 08-25 16:30
PROVIDERS: ADMIT Internal Medicine; ATTEND Internal Medicine
DX: J45.901 Unspecified asthma with (acute) exacerbation (principal); D72.829 Elevated white blood cell count, unspecified; R09.02 Hypoxemia
CPT/HCPCS: 36415; 36600; 71045; 80048; 80053; 82803; 83735; 83880; 84100; 84484; 85025; 85610; 85730; 87070; 93005; 94640; 94644; 96374; 96375; C9113; J0456; J0696; J1644; J2920; J2930; J3475; J7030; J7050

== ENCOUNTER 2018-08-30 17:04 | Emergency (ER) | payer MEDICARE ==
[~2018-08-30] VITALS: Wt 89.0 kg
[~2018-08-30 17:04] MED LIST: ALBU18HF INHALATION; ALBU90AE INHALATION; AZIT500T5 PO; GUAI120S25 PO; MED4DP PO; TIOT18CA INHALATION
[2018-08-30] MEDS ORDERED: ALBUTEROL 0.083% (NEB) 2.5 MG/3 ML AMP NEB STA (17:23)
[2018-08-30] MEDS ORDERED: predniSONE 20 MG TAB PO STA (17:23)
[2018-08-30] MEDS ORDERED: IPRATROPIUM (NEB) 0.5 MG/2.5 ML AMP NEB STA (17:23)
--- NOTE | 2018-08-30 17:32 | ERD ---
ER Documentation Chief Complaint Chief Complaint NEEDS REFILL OF ALBUTEROL HPI 68-year-old female with history of asthma presents for medication change. States that she was just admitted to the hospital a week ago for shortness of breath but they discharged her with powdered albuterol which she is allergic to. She is requesting a different kind of albuterol. In addition she states she has some current wheezing would like a breathing treatment. She also requests a cough medication that does not contain alcohol. Denies chest pain, hemoptysis, cough, fevers, shortness of breath. ROS All systems reviewed and are negative except as per history of present illness. Medications Home Meds Active Scripts Benzonatate* (Benzonatate*) 200 Mg Capsule, 200 MG PO TID PRN for COUGH, #30 CAP Prov:KADY NORRIS 08/30/18 Albuterol Sulfate* (Proair HFA*) 8.5 Gm Hfa.aer.ad, 2 PUFF INH Q4H PRN for WHEEZING AND SOB, #1 INHALER Prov:KADY NORRIS 08/30/18 Albuterol Sulfate (Proair Respiclick) 90 Mcg Aer.pow.ba, 1 PUFF INHALATION Q4 PRN for SHORTNESS OF BREATH, #1 BOTTLE Prov:RICHARD BUSCH 08/28/18 Methylprednisolone* (Medrol* DOSE PACK) 4 Mg/Dose-Pack Tab.ds.pk, 4 MG PO . DIRECTED for 5 Days, PACKET Prov:RICHARD BUSCH 08/28/18 Dkeohqxfinl-U-Sqiczlnjxl Hb* (Guaifenesin* DM Syrup) 120 Ml Syrup, 10 ML PO Q4H PRN for COUGH for 14 Days Prov:RICHARD BUSCH 08/28/18 Azithromycin* (Azithromycin*) 500 Mg Tablet, 500 MG PO DAILY for 3 Days, TAB Prov:RICHARD BUSCH 08/28/18 Reported Medications Tiotropium [place]* (Spiriva*) 18 Mcg Cap.w.dev, 1 CAP INHALATION DAILY, #30 CAP 08/24/18 Albuterol Sulfate* (Ventolin HFA*) 18 Gm Hfa.aer.ad, 2 PUFF INHALATION BID, #1 INHALER 08/24/18 Allergies Allergies: Coded Allergies: No Known Allergy (Unverified , 08/23/18) PMhx/Soc History of Surgery: Yes (CATARACT SURGERY, TUBAL LIGATION) Anesthesia Reaction: No Hx Neurological Disorder: No Hx Respiratory Disorders: Yes (ASTHMA) Hx Cardiac Disorders: No Hx Psychiatric Problems: No Hx Miscellaneous Medical Probl: No Hx Alcohol Use: Yes Hx Substance Use: No Hx Tobacco Use: Yes FmHx Family History: No diabetes, No coronary disease, No other Physical Exam Vitals Vital Signs Date Temp Pulse Resp B/P (MAP) Pulse Ox O2 O2 Flow FiO2 Time Delivery Rate 08/30/18 94 18 144/78 98 Room Air 20:20 (100) 08/30/18 105 20 100 21 17:49 08/30/18 98.1 99 18 168/82 97 17:06 (110) Physical Exam Const: No acute distress Head: Atraumatic Eyes: Normal Conjunctiva ENT: Normal External Ears, Nose and Mouth. Neck: Full range of motion. No meningismus. Resp: Wheezing heard diffusely in both lung stevenson bilaterally. There is no pallor or cyanosis. Equal breath sounds. Cardio: Regular rate and rhythm, no murmurs Abd: Soft, non tender, non distended. Normal bowel sounds Skin: No petechiae or rashes Back: No midline or flank tenderness Ext: No cyanosis, or edema Neur: Awake and alert Psych: Normal Mood and Affect Results 24 hrs Current Medications Medications Dose Sig/Cristal Start Time Status Last (Trade) Ordered Route PRN Stop Time Admin Dose Reason Admin Albuterol 7.5 mg ONCE STAT 08/30/18 DC 08/30/18 (Proventil NEB 17:23 08/30/18 17:47 0.083% (Neb)) 17:25 Ipratropium 0.5 mg ONCE STAT 08/30/18 DC 08/30/18 [place] NEB 17:23 08/30/18 17:47 (Atrovent 17:25 0.02% (Neb)) Prednisone 60 mg ONCE STAT 08/30/18 DC 08/30/18 (Prednisone) PO 17:23 08/30/18 17:31 17:25 Procedures/MDM ER Course: Patient given treatment with nebulized albuterol, ipatropium, and steroids. MDM: I have low suspicion for status asthmaticus due to patient improvment after breathing treatment. I have low suspicion for CHF, pneumonia, aspirated foreign body, pneumothorax, PE, respiratory distress, or other mergent condition based on exam and patient history. In addition, patient does not meet Wells score criteria for D-Dimer. Presentation consistent with asthma exacerbation for which patient was given breathing treatment and steroids in ER. After breathing treatment was finished, patients vitals and exam were WNL and patient stated they felt much better. Patient was discharged with rx for alubuterol and a nicole rt course of oral steroids as well as benzonatate. Patient was also advised that asthma has to be managed on outpatient basis by primary care provider. Patient discharged with strict ER precautions. Patient advised to follow up with PMD. All questions answered at discharge. Departure Diagnosis: Primary Impression: Encounter for medication refill Additional Impression: Asthma Asthma severity: unspecified severity Asthma persistence: unspecified Asthma complication type: unspecified Qualified Codes: J45.909 - Unspecified asthma, uncomplicated Condition: Stable KADY NORRIS August 30, 2018 17:32
[2018-08-30] MEDS ORDERED: ALBU8.5H8 INH (17:37)
[2018-08-30 20:20] VITALS: BP 144/78; PULSE 94; RESP 18
[2018-08-30] MEDS ORDERED: BENZ200C68 PO (20:58)
== END 2018-08-30 20:20 | disposition home or self-care (01) ==
LOC: FTE 17:04
DX: Z76.0 Encounter for issue of repeat prescription (principal); J45.901 Unspecified asthma with (acute) exacerbation; Z87.891 Personal history of nicotine dependence
CPT/HCPCS: 94664; 99283; J7512